=== PATIENT | female | born 2005 | race Caucasian/White ===

== ENCOUNTER 2025-01-20 15:24 | Observation (INO) ==
[2025-01-20] MEDS ORDERED: NS 1,000 ML IV 1,000 ML ONE (15:47)
[2025-01-20] MEDS: NS 1,000 ML IV 1,000 ML IV ONE (16:00)
[2025-01-20 16:02] LABS: MEAN PLATELET VOLUME 8.4 fL (7.4-11.0); RED CELL DISTRIBUTION WIDTH 13.2 % (11.6-16.5)
[2025-01-20 16:05] LABS: BLOOD/HEMOGLOBIN,URINE NEGATIVE (NEGATIVE); LEUKOCYTE ESTERASE ,URINE 3+ (NEGATIVE); NITRITES,URINE NEGATIVE (NEGATIVE)
[2025-01-20 16:17] LABS: COR CA(FOR HYPOALB) 10.3 mg/dL (8.5-10.1); CREATININE 0.52 mg/dL (0.55-1.02); eGFR NON BLACK RACES > 60 (>60)
[2025-01-20 16:21] LABS: APPEARANCE,URINE CLOUDY (CLEAR)
[2025-01-20 16:22] LABS: SQUAMOUS EPITHELIAL CELL,UR MANY /HPF (NEGATIVE)
[2025-01-20] MEDS ORDERED: FOLIC ACID TAB 1 MG PO SCH (17:00)
[2025-01-20] MEDS ORDERED: CELEXA PO SCH (17:00)
[2025-01-20] MEDS ORDERED: LAMICTAL TAB 100 MG PO SCH (17:00)
[2025-01-20] MEDS: NS 1,000 ML IV 1,000 ML IV SCH (17:56)
[2025-01-20 18:25] VITALS: BMI 29.7
[2025-01-20] MEDS: PHENERGAN INJ 25 MG IM PRN (21:30)
[2025-01-20] MEDS: PROTONIX TAB 40 MG PO SCH (22:35)
[2025-01-20] MEDS: AMBIEN PO SCH (23:12)
[2025-01-21 06:10] LABS: MEAN PLATELET VOLUME 8.2 fL (7.4-11.0); RED CELL DISTRIBUTION WIDTH 13.4 % (11.6-16.5)
[2025-01-21 06:23] LABS: COR CA(FOR HYPOALB) 9.9 mg/dL (8.5-10.1); CREATININE 0.45 mg/dL (0.55-1.02); eGFR NON BLACK RACES > 60 (>60)
[2025-01-21] MEDS: CELEXA PO SCH (08:30)
[2025-01-21] MEDS: FOLIC ACID TAB 1 MG PO SCH (08:30)
[2025-01-21] MEDS: TUMS PO PRN (08:30)
[2025-01-21] MEDS ORDERED: PROTONIX TAB 40 MG PO SCH (09:00)
[2025-01-21] MEDS: PATIENT'S HOME MEDICATION PO SCH (10:06)
[2025-01-21] MEDS: TYLENOL 325 MG TAB PO PRN (12:27)
--- NOTE | 2025-01-21 12:44 | DR.OB ---
OB QUICK NOTE Assessment/Plan (1) Intractable nausea and vomiting: Assessment/Plan: S-Nurse called to say that patient was in pain and crying. Patient described pain as lower back and dull. No CTX, no bleeding, no d/c. No further vomiting today, tolerating clears and bland foods. O-Afebrile,VSS Abd=soft, NT, gravid. No rebound, no guarding. Pelvic=EGBUS negative. Vaginal mucosa pink, no bleeding, no d/c. CVX=closed/thick/-2 A-Low back pain P-Will order Tylenol and heating pad to back for pain. Patient also encouraged to ambulate. Will order OB U/S and f/u.
--- NOTE | 2025-01-21 14:50 | US ---
EXAM: OB GREATER THAN 14 WEEKS LIMIT HISTORY: INTRACTABLE NAUSEA, PAIN; COMPARISON: None. TECHNIQUE: Limited emergent OB ultrasound performed FINDINGS: A single, living intrauterine is identified in cephalic presentation with mean gestational age of 35 weeks, 6 days on the basis of biparietal diameter, head circumference, abdominal circumference and femoral length. The estimated weight is 2703 grams. heart motion was identified with the heart rate of 136 beats per minute. The placenta is anterior and demonstrates normal echogenicity. The amniotic fluid is adequate. Amniotic fluid index measures 9.2 cm. No definite abnormalities are identified on anatomic survey. IMPRESSION: 1. Single, living intrauterine in cephalic presentation with mean gestational age of 35 weeks, 6 days. 2. Anterior placenta without any evidence of placenta previa or placental abruption. THIS IS AN ELECTRONICALLY VERIFIED FINAL REPORT 01/21/2025 2:47 PM - Electronically signed by Pino Encarnacion MD
--- NOTE | 2025-01-21 17:30 | DR.OB ---
OB QUICK NOTE Assessment/Plan (1) Intractable nausea and vomiting: Assessment/Plan: S-Asked to see patient to review U/S done this afternoon. O-Afebrile,VSS U/S reviewed with patient and unremarkable. growth consistent with dates. MELISSA=9cm. No abnormalities noted. Placenta unremarkable. No evidence of ROM. A-IUP at 35 6/7 weeks with N/V--improving per patient. P-Continue IV hydration and antiemetics Continue Protonix
[2025-01-22 08:31] VITALS: BP 103/56; PULSE 98; RESP 16; TEMP 98; O2SAT 98
== END 2025-01-22 09:00 | disposition home or self-care (01) ==
LOC: MED/SURG 15:24 → ER 15:24 → MERGE 16:37 → MED/SURG 17:20
PROVIDERS: ADMIT Specialist; ATTEND Specialist
DX: M54.59 Other low back pain; K21.9 Gastro-esophageal reflux disease without esophagitis; F31.89 Other bipolar disorder; E83.51 Hypocalcemia; O99.343 Other mental disorders complicating pregnancy, third trimester; O99.613 Diseases of the digestive system complicating pregnancy, third trimester; O21.8 Other vomiting complicating pregnancy; Z3A.35 35 weeks gestation of pregnancy

== ENCOUNTER 2025-02-10 06:15 | Inpatient (IN) ==
[~2025-02-10 06:15] MED LIST: XYLOCAINE 2 % (PLAIN) ONE
[2025-02-10] MEDS: VERSED ONE (06:26)
[2025-02-10] MEDS: LR 1,000 ML IV 1,000 ML IV ONE ×2 (06:28→07:38)
[2025-02-10] MEDS: PEPCID 20 MG VIAL ONE (06:28)
[2025-02-10] MEDS: ZOFRAN INJ 4 MG VIAL ONE (06:30)
[2025-02-10] MEDS: REGLAN INJ 10 MG VIAL ONE (06:30)
[2025-02-10] MEDS: DIPRIVAN VIAL 20 ML ONE (06:31)
[2025-02-10] MEDS: D5 LR 1,000 ML 0 ML IV ONE (06:35)
[2025-02-10] MEDS: NS 100 ML IV 100 ML ONE (06:35)
[2025-02-10] MEDS: ANCEF VIAL 1 GRAM ONE (06:35)
[2025-02-10] MEDS: ANCEF VIAL 1 GRAM IVP ONE (06:37)
[2025-02-10] MEDS: MARCAINE SPINAL ONE (06:38)
[2025-02-10] MEDS: PRECEDEX INJ VIAL ONE (06:38)
[2025-02-10] MEDS: LR 1,000 ML IV 2,400 ML IV PRN (06:45)
[2025-02-10] MEDS: ZOFRAN INJ 4 MG VIAL IVP PRN (06:55)
[2025-02-10] MEDS: PEPCID 20 MG VIAL IVP PRN (06:55)
[2025-02-10] MEDS: REGLAN INJ 10 MG VIAL IVP PRN (06:55)
[2025-02-10] MEDS: LR 1,000 ML IV 1,000 ML IV SCH (06:59)
[2025-02-10] MEDS: ANCEF VIAL 1 GRAM IV PRN (07:10)
[2025-02-10] MEDS: PITOCIN ONE (07:45)
[2025-02-10] MEDS ORDERED: PITOCIN IVP PRN (08:04)
[2025-02-10] MEDS: XYLOCAINE 2 % (PLAIN) IVP PRN (08:08)
[2025-02-10] MEDS: DIPRIVAN IVP PRN (08:09)
[2025-02-10] MEDS: EPHEDRINE SULFATE INJ IVP PRN (08:15)
[2025-02-10] MEDS: EPHEDRINE SULFATE INJ ONE (08:15)
[2025-02-10] MEDS ORDERED: BENADRYL INJ 50 MG VIAL IVP PRN ×2 (08:20→09:25)
[2025-02-10] MEDS ORDERED: ZOFRAN INJ 4 MG VIAL IVP PRN ×2 (08:20→09:25)
[2025-02-10] MEDS ORDERED: DILAUDID INJ IVP PRN (08:20)
[2025-02-10] MEDS ORDERED: BARHEMSYS INJ IVP PRN (08:20)
[2025-02-10] MEDS: OFIRMEV IV 1000 MG VIAL 1,000 MG/100 ML VIAL IV PRN (08:51)
[2025-02-10] MEDS: TORADOL 30 MG VIAL IVP PRN (08:52)
[2025-02-10] MEDS ORDERED: REGLAN INJ 10 MG VIAL IVP PRN (09:25)
[2025-02-10] MEDS ORDERED: MYLICON TAB 80 MG CHEW PO PRN (09:25)
[2025-02-10] MEDS ORDERED: TORADOL 30 MG VIAL IVP SCH (09:25)
[2025-02-10] MEDS ORDERED: OFIRMEV IV 1000 MG VIAL 1,000 MG/100 ML VIAL IV SCH (10:00)
[2025-02-10] MEDS: OFIRMEV IV 1000 MG VIAL 1,000 MG/100 ML VIAL IV ONE (12:43)
[2025-02-10] MEDS: TORADOL 30 MG VIAL ONE (12:44)
[2025-02-10] MEDS: DILAUDID INJ IVP PRN (13:06)
[2025-02-10] MEDS: LAMICTAL TAB 100 MG PO SCH (13:19)
[2025-02-10] MEDS: PROTONIX TAB 40 MG PO SCH (13:19)
[2025-02-10] MEDS: CELEXA PO SCH (13:19)
[2025-02-10] MEDS ORDERED: ADACEL or BOOSTRIX TDaP VACCINE IM ONE (13:22)
[2025-02-10] MEDS: PRENATAL PLUS PO SCH (13:23)
[2025-02-10] MEDS: ADACEL or BOOSTRIX TDaP VACCINE IM ONE (13:24)
[2025-02-10] MEDS: PERCOCET TAB 5/325 MG PO PRN (16:32)
[2025-02-10] MEDS: OFIRMEV IV 1000 MG VIAL 1,000 MG/100 ML VIAL IV SCH (18:32)
[2025-02-10] MEDS: MOTRIN TAB 800 MG PO PRN (19:01)
[2025-02-10] MEDS: TORADOL 30 MG VIAL IVP SCH (21:18)
[2025-02-11] MEDS: OXYTOCIN 20 UNIT/1,000 ML-NS 20 UNIT/1,000 ML PLAST..BAG IV SCH (00:42)
[2025-02-11] MEDS: COLACE CAP 100 MG PO SCH (08:34)
[2025-02-11] MEDS ORDERED: CELEXA PO SCH (13:00)
[2025-02-11] MEDS: BACTROBAN TOPICAL OINT TOP SCH (14:00)
[2025-02-11] MEDS: ALPRAZOLAM ODT PO PRN (15:57)
[2025-02-11] MEDS: AMBIEN PO SCH (20:50)
[2025-02-12 04:58] VITALS: O2SAT 97
[2025-02-12 07:59] VITALS: BP 122/84; PULSE 101; RESP 20; TEMP 98.3
[2025-02-12] MEDS: DEPO-PROVERA CONTRACEPTIVE INJ IM ONE (08:25)
== END 2025-02-12 11:10 | disposition home or self-care (01) | DRG 788 ==
LOC: LD 06:15 → MED/SURG 09:25
PROVIDERS: ADMIT Specialist; ATTEND Specialist
DX: Z01.818 Encounter for other preprocedural examination; O99.613 Diseases of the digestive system complicating pregnancy, third trimester; O99.343 Other mental disorders complicating pregnancy, third trimester; Z3A.38 38 weeks gestation of pregnancy; Z37.0 Single live birth